=== PATIENT | female | born 1945 | race Caucasian/White ===

== ENCOUNTER 2018-11-25 19:12 | Emergency (ER) | payer MEDICARE ==
[~2018-11-25] VITALS: Ht 170.2 cm; Wt 79.4 kg
[~2018-11-25 19:12] MED LIST: METOPROLOL SUCC25 MG PO; RANITIDINE HCL150 MG PO
[2018-11-25] MEDS ORDERED: SODIUM CHLORIDE 0.9% 1000ML 1,000 ML IV SCH ×2 (19:30→20:45)
[2018-11-25] MEDS ORDERED: PROMETHAZINE 12.5MG/ NACL 0.9% 12.5 MG/50 ML BAG IV ONE (19:30)
== END 2018-11-25 21:36 | disposition home or self-care (01) ==
LOC: FSED 19:12
DX: R11.2 Nausea with vomiting, unspecified (principal); R19.7 Diarrhea, unspecified; A08.11 Acute gastroenteropathy due to Norwalk agent; N28.9 Disorder of kidney and ureter, unspecified
CPT/HCPCS: 99283; J2550; J7030

== ENCOUNTER 2023-02-01 12:37 | Inpatient (IN) | payer MEDICARE ==
[~2023-02-01] VITALS: Ht 170.2 cm; Wt 79.4 kg
[2023-02-01 13:03] LABS: BASOPHILS # (AUTO) 0.1 (0.0-0.1); BASOPHILS % 1.2 % (0.0-1.0); EOSINOPHILS # (AUTO) 0.2 (0.0-0.4); EOSINOPHILS % 1.8 % (0.0-6.0); HEMATOCRIT 48.9 % (34.2-44.1); HEMOGLOBIN 15.6 g/dL (12.0-16.0); LYMPHOCYTES # (AUTO) 2.1 (1.0-3.2); LYMPHOCYTES % 24.3 % (18.0-39.1); MEAN CORPUSCULAR HEMOGLOBIN 28.9 pg (28-32); MEAN CORPUSCULAR HGB CONC 31.9 g/dL (31-35); MEAN CORPUSCULAR VOLUME 90.7 fL (81-99); MONOCYTES # (AUTO) 0.4 (0.2-0.8); MONOCYTES % 4.5 % (4.4-11.3); NEUTROPHILS # (AUTO) 5.7 (2.1-6.9); NEUTROPHILS % 67.8 % (38.7-80.0); PLATELET COUNT 177 x10e3/uL (140-360); RED BLOOD COUNT 5.39 x10e6/uL (3.6-5.1)
[2023-02-01 13:09] LABS: CLARITY,URINE CLOUDY (CLEAR); COLOR,URINE YELLOW (YELLOW); KETONES,URINE TRACE (NEGATIVE); LEUKOCYTE ESTERASE ,URINE NEGATIVE (NEGATIVE); NITRITE,URINE NEGATIVE (NEGATIVE); PROTEIN,URINE DIPSTICK 1+ (NEGATIVE); URINE UROBILINOGEN 2 mg/dL (0.2 - 1)
[2023-02-01] MEDS ORDERED: DEXTROSE 5%/0.45% SOD CHL 1,000 ML IV ONE (13:15)
[2023-02-01 13:19] LABS: ANION GAP 14.2 mmol/L (8-16); BLOOD UREA NITROGEN 12 mg/dL (7-26); BUN/CREATININE RATIO 10 (6-25); CALCIUM 7.8 mg/dL (8.4-10.2); CARBON DIOXIDE 25 mmol/L (22-29); CHLORIDE 104 mmol/L (98-107); CREATINE KINASE 74 IU/L (29-168); CREATININE, SERUM 1.22 mg/dL (0.57-1.11); GLUCOSE 83 mg/dL (74-118); POTASSIUM 4.2 mmol/L (3.5-5.1); SODIUM 139 mmol/L (136-145)
[2023-02-01 13:21] LABS: BACTERIA,URINE MANY /HPF; WBC,URINE (MAN) 21-50 /HPF (0-5)
[2023-02-01 13:22] LABS: EPITHELIAL CELLS,URINE FEW /LPF
[2023-02-01 15:05] VITALS: PULSE 66; RESP 14; O2SAT 98
[2023-02-01] MEDS ORDERED: SODIUM CHLORIDE FLUSH 10 ML SYR INJ PRN (15:15)
[2023-02-01] MEDS ORDERED: ALBUTEROL/IPRATROPIUM 3 ML NEB NEB PRN (15:15)
[2023-02-01 16:00] VITALS: BP_SYST 129; BP_SYST 140; BP_DIAS 64; BP_DIAS 85; PULSE 74; PULSE 77; RESP 21; TEMP 97.2; TEMP 98.9; O2SAT 100
[2023-02-01 19:08] VITALS: PULSE 74; RESP 18; O2SAT 99
[2023-02-01 20:00] VITALS: BP 115/56; PULSE 82; RESP 18; TEMP 97.1; O2SAT 98
[2023-02-01] MEDS ORDERED: Vancomycin IV 1 GM in SODIUM CHLORIDE 0.9% 250ML 250 ML IV ONE (20:00)
[2023-02-01 21:04] VITALS: BP 115/56; PULSE 82; RESP 18; TEMP 97.1; O2SAT 98
[2023-02-01] MEDS: ONDANSETRON HCL INJ 2MG/ML 2ML 2 MG/ML VIAL IV PRN (21:40)
[2023-02-01] MEDS ORDERED: VENTOLIN HFA18 GM INH (22:07)
[2023-02-01] MEDS ORDERED: METOPROLOL SUCC25 MG PO (22:49)
[2023-02-01] MEDS: METOPROLOL SUCCINATE 25 MG TAB XL PO SCH (23:08)
[2023-02-02] VITALS (12 sets, daily range): BP systolic 104–148; BP diastolic 52–92; PULSE 58–79; RESP 16–20; TEMP 97.5–98.5; O2SAT 92–100
[2023-02-02 06:39] LABS: BASOPHILS # (AUTO) 0.1 (0.0-0.1); BASOPHILS % 1.5 % (0.0-1.0); EOSINOPHILS # (AUTO) 0.1 (0.0-0.4); EOSINOPHILS % 1.8 % (0.0-6.0); HEMATOCRIT 48.4 % (34.2-44.1); HEMOGLOBIN 15.1 g/dL (12.0-16.0); LYMPHOCYTES # (AUTO) 1.4 (1.0-3.2); LYMPHOCYTES % 19.9 % (18.0-39.1); MEAN CORPUSCULAR HEMOGLOBIN 28.8 pg (28-32); MEAN CORPUSCULAR HGB CONC 31.2 g/dL (31-35); MEAN CORPUSCULAR VOLUME 92.4 fL (81-99); MONOCYTES # (AUTO) 0.3 (0.2-0.8); MONOCYTES % 4.8 % (4.4-11.3); NEUTROPHILS # (AUTO) 5.1 (2.1-6.9); NEUTROPHILS % 71.7 % (38.7-80.0); PLATELET COUNT 144 x10e3/uL (140-360); RED BLOOD COUNT 5.24 x10e6/uL (3.6-5.1); RED CELL DISTRIBUTION WIDTH 18.5 % (11.7-14.4)
[2023-02-02 07:08] LABS: ANION GAP 14.5 mmol/L (8-16); CALCIUM 8.3 mg/dL (8.4-10.2); CREATININE, SERUM 1.25 mg/dL (0.57-1.11); POTASSIUM 3.5 mmol/L (3.5-5.1)
[2023-02-02] MEDS: ONDANSETRON HCL INJ 2MG/ML 2ML 2 MG/ML VIAL IV PRN (07:38)
[2023-02-02] MEDS: METOPROLOL SUCCINATE 25 MG TAB XL PO SCH (09:50)
[2023-02-02] MEDS: LEVALBUTEROL HCL SOLN NEBU 0.63 MG/3 ML NEB INH SCH ×2 (15:24→19:05)
[2023-02-02] MEDS: ENOXAPARIN 30 MG/0.3 ML SYR SC SCH (16:03)
[2023-02-02] MEDS ORDERED: ACETAMINOPHEN 325 MG TAB PO PRN (20:15)
[2023-02-03] VITALS (12 sets, daily range): BP systolic 91–139; BP diastolic 52–70; PULSE 60–78; RESP 16–20; TEMP 97.3–98.8; O2SAT 20–100
[2023-02-03] MEDS: LEVALBUTEROL HCL SOLN NEBU 0.63 MG/3 ML NEB INH SCH ×4 (01:00→19:15)
[2023-02-03 06:28] LABS: BASOPHILS # (AUTO) 0.1 (0.0-0.1); BASOPHILS % 1.5 % (0.0-1.0); EOSINOPHILS # (AUTO) 0.1 (0.0-0.4); EOSINOPHILS % 2.2 % (0.0-6.0); HEMATOCRIT 43.3 % (34.2-44.1); HEMOGLOBIN 13.3 g/dL (12.0-16.0); LYMPHOCYTES # (AUTO) 1.6 (1.0-3.2); LYMPHOCYTES % 26.9 % (18.0-39.1); MEAN CORPUSCULAR HEMOGLOBIN 28.8 pg (28-32); MEAN CORPUSCULAR HGB CONC 30.7 g/dL (31-35); MEAN CORPUSCULAR VOLUME 93.7 fL (81-99); MONOCYTES # (AUTO) 0.3 (0.2-0.8); MONOCYTES % 4.8 % (4.4-11.3); NEUTROPHILS # (AUTO) 3.9 (2.1-6.9); NEUTROPHILS % 64.1 % (38.7-80.0); PLATELET COUNT 133 x10e3/uL (140-360); RED BLOOD COUNT 4.62 x10e6/uL (3.6-5.1); RED CELL DISTRIBUTION WIDTH 17.7 % (11.7-14.4)
[2023-02-03 06:35] LABS: ALBUMIN 2.1 g/dL (3.5-5.0); ALBUMIN/GLOBULIN RATIO 0.6 (0.8-2.0); ANION GAP 12.5 mmol/L (8-16); CALCIUM 8.2 mg/dL (8.4-10.2); CREATININE, SERUM 1.49 mg/dL (0.57-1.11); MAGNESIUM 1.6 MG/DL (1.3-2.1); POTASSIUM 3.5 mmol/L (3.5-5.1)
[2023-02-03] MEDS: METOPROLOL SUCCINATE 25 MG TAB XL PO SCH (09:22)
[2023-02-03] MEDS: ENOXAPARIN 30 MG/0.3 ML SYR SC SCH (17:11)
[2023-02-03] MEDS: NYSTATIN 15 GM POWDER UD BTL TOP SCH (18:58)
[2023-02-04] VITALS (11 sets, daily range): BP systolic 100–111; BP diastolic 50–71; PULSE 62–79; RESP 16–20; TEMP 97.4–98.3; O2SAT 66–96
[2023-02-04] MEDS: LEVALBUTEROL HCL SOLN NEBU 0.63 MG/3 ML NEB INH SCH ×4 (01:00→19:10)
[2023-02-04] MEDS ORDERED: AZITHROMYCIN 250 MG TAB PO SCH (09:00)
[2023-02-04] MEDS: METOPROLOL SUCCINATE 25 MG TAB XL PO SCH (09:06)
[2023-02-04] MEDS: SERTRALINE HCL 50 MG TAB PO SCH (09:06)
[2023-02-04] MEDS: NYSTATIN 15 GM POWDER UD BTL TOP SCH ×2 (09:06→16:47)
[2023-02-04] MEDS: BALSAM PERU/CASTOR OIL 60 GM OINT...G. TP SCH (09:06)
[2023-02-04] MEDS ORDERED: ONDANSETRON HCL 4 MG ORAL DISINTEGRATING TAB PO PRN (11:45)
[2023-02-04] MEDS: ENOXAPARIN 30 MG/0.3 ML SYR SC SCH (16:47)
[2023-02-04] MEDS ORDERED: SODIUM CHLORIDE 0.9% 250ML 250 ML ONE (17:07)
[2023-02-04] MEDS: VANCOMYCIN HCL 125 MG CAPSULE PO SCH (20:12)
[2023-02-05] VITALS (10 sets, daily range): BP systolic 98–109; BP diastolic 57–68; PULSE 60–78; RESP 16–22; TEMP 97.3–97.9; O2SAT 84–95
[2023-02-05] MEDS: LEVALBUTEROL HCL SOLN NEBU 0.63 MG/3 ML NEB INH SCH ×4 (00:45→20:15)
[2023-02-05 05:37] LABS: BASOPHILS # (AUTO) 0.1 (0.0-0.1); BASOPHILS % 1.4 % (0.0-1.0); EOSINOPHILS # (AUTO) 0.1 (0.0-0.4); EOSINOPHILS % 1.8 % (0.0-6.0); HEMATOCRIT 43.4 % (34.2-44.1); HEMOGLOBIN 13.5 g/dL (12.0-16.0); LYMPHOCYTES # (AUTO) 1.2 (1.0-3.2); LYMPHOCYTES % 19.8 % (18.0-39.1); MEAN CORPUSCULAR HEMOGLOBIN 28.8 pg (28-32); MEAN CORPUSCULAR HGB CONC 31.1 g/dL (31-35); MEAN CORPUSCULAR VOLUME 92.7 fL (81-99); MONOCYTES # (AUTO) 0.4 (0.2-0.8); MONOCYTES % 5.6 % (4.4-11.3); NEUTROPHILS # (AUTO) 4.5 (2.1-6.9); NEUTROPHILS % 71.1 % (38.7-80.0); PLATELET COUNT 151 x10e3/uL (140-360); RED BLOOD COUNT 4.68 x10e6/uL (3.6-5.1); RED CELL DISTRIBUTION WIDTH 18.2 % (11.7-14.4)
[2023-02-05 06:27] LABS: ALBUMIN 2.4 g/dL (3.5-5.0); ALBUMIN/GLOBULIN RATIO 0.6 (0.8-2.0); ANION GAP 12.5 mmol/L (8-16); CALCIUM 8.8 mg/dL (8.4-10.2); CREATININE, SERUM 1.16 mg/dL (0.57-1.11); POTASSIUM 3.5 mmol/L (3.5-5.1)
[2023-02-05] MEDS: BALSAM PERU/CASTOR OIL 60 GM OINT...G. TP SCH (08:33)
[2023-02-05] MEDS: SERTRALINE HCL 50 MG TAB PO SCH (08:33)
[2023-02-05] MEDS: VANCOMYCIN HCL 125 MG CAPSULE PO SCH (08:33)
[2023-02-05] MEDS: METOPROLOL SUCCINATE 25 MG TAB XL PO SCH (08:33)
[2023-02-05] MEDS: NYSTATIN 15 GM POWDER UD BTL TOP SCH ×2 (08:34→17:24)
[2023-02-05] MEDS: LACTOBACILLUS ACIDOPHILUS CAPSULE PO SCH ×2 (14:22→17:24)
[2023-02-05] MEDS: ENOXAPARIN 30 MG/0.3 ML SYR SC SCH (17:25)
[2023-02-06] VITALS: BP 105/57; RESP 22; TEMP 97.7; O2SAT 92
[2023-02-06 00:11] VITALS: BP_SYST 106; BP_SYST 134; BP_DIAS 56; BP_DIAS 73; PULSE 69; PULSE 97; RESP 17; RESP 20; TEMP 97.8; TEMP 98.7; O2SAT 100; O2SAT 92
[2023-02-06 01:50] VITALS: PULSE 76; RESP 16; O2SAT 92
[2023-02-06] MEDS: LEVALBUTEROL HCL SOLN NEBU 0.63 MG/3 ML NEB INH SCH (01:50)
[2023-02-06 04:41] VITALS: BP 111/46; PULSE 71; RESP 21; TEMP 97.6; O2SAT 91
[2023-02-06 08:40] VITALS: BP 108/52; PULSE 67; RESP 21; TEMP 97.6; O2SAT 95
[2023-02-06] MEDS: LACTOBACILLUS ACIDOPHILUS CAPSULE PO SCH (08:41)
[2023-02-06] MEDS: SERTRALINE HCL 50 MG TAB PO SCH (08:42)
[2023-02-06] MEDS: METOPROLOL SUCCINATE 25 MG TAB XL PO SCH (08:42)
[2023-02-06] MEDS: VANCOMYCIN HCL 125 MG CAPSULE PO SCH (08:42)
[2023-02-06] MEDS: NYSTATIN 15 GM POWDER UD BTL TOP SCH (08:43)
[2023-02-06] MEDS: BALSAM PERU/CASTOR OIL 60 GM OINT...G. TP SCH (08:43)
== END 2023-02-06 13:43 | DRG 871 ==
LOC: ER 12:44 → ERHOLD 15:11 → MED/SURG3 15:53 → OBSVTOIN 02-03 09:33
PROVIDERS: ADMIT Family Medicine; ATTEND Family Medicine
DX: A40.8 Other streptococcal sepsis (principal); I50.33 Acute on chronic diastolic (congestive) heart failure; J96.00 Acute respiratory failure, unspecified whether with hypoxia or hypercapnia; N39.0 Urinary tract infection, site not specified; A04.72 Enterocolitis due to Clostridium difficile, not specified as recurrent; G91.2 (Idiopathic) normal pressure hydrocephalus; N17.9 Acute kidney failure, unspecified; I13.0 Hypertensive heart and chronic kidney disease with heart failure and stage 1 through stage 4 chronic kidney disease, or unspecified chronic kidney disease; R65.20 Severe sepsis without septic shock; R19.7 Diarrhea, unspecified; N18.9 Chronic kidney disease, unspecified; L89.151 Pressure ulcer of sacral region, stage 1; L89.301 Pressure ulcer of unspecified buttock, stage 1; I49.3 Ventricular premature depolarization; J44.9 Chronic obstructive pulmonary disease, unspecified; B95.5 Unspecified streptococcus as the cause of diseases classified elsewhere; Z91.81 History of falling; Z90.49 Acquired absence of other specified parts of digestive tract; Z60.2 Problems related to living alone; Z88.2 Allergy status to sulfonamides; Z95.5 Presence of coronary angioplasty implant and graft; Z20.822 Contact with and (suspected) exposure to COVID-19
CPT/HCPCS: 0223U; 36415; 51700; 70450; 71045; 80048; 80053; 81001; 82550; 82553; 83605; 83735; 83880; 84484; 85025; 87040; 87071; 87086; 87205; 93005; 93306; 93971; 94640; 94760; 94799; 99252; 99285; G0378; J0696; J1650; J2405; J2543; J7050; Q0162